=== PATIENT | female | born 1950 | race Caucasian/White ===

== ENCOUNTER 2017-12-15 08:24 | Day surgery (SDC) | payer MEDICARE, BC ==
[~2017-12-15 08:24] MED LIST: MIDAZOLAM 2 MG/2 ML SOL ONE
[2017-12-15] MEDS ORDERED: ACETAZOLAMIDE 250 MG PO ONE (08:29)
[2017-12-15] MEDS: PHENYLEPHRINE HCL 10% OPHTHAL SOL ONE ×2 (08:51→09:05)
[2017-12-15] MEDS: PROPARACAINE HCL 0.5% OPHTHALMIC SOL ONE ×3 (08:51→10:19)
[2017-12-15] MEDS: KETOROLAC 0.5% OPTH 60 DROP SOL ONE ×2 (08:52→09:06)
[2017-12-15] MEDS: CYCLOPENTOLATE 1% SOL ONE ×2 (08:52→09:06)
[2017-12-15 09:00] VITALS: TEMP 98.5
[2017-12-15] MEDS ORDERED: POVIDONE IODINE 5% SOL ONE (10:14)
[2017-12-15] MEDS ORDERED: BSS 500 ML 500 ML IR ONE (10:15)
[2017-12-15] MEDS ORDERED: LIDOCAINE HCL 1% MPF 30 SOL ONE (10:15)
[2017-12-15 10:53] VITALS: BP 134/69; PULSE 59; RESP 20; O2SAT 98
== END 2017-12-15 11:10 | disposition home or self-care (01) | DRG 125 ==
LOC: SURG 08:24
PROVIDERS: ATTEND Ophthalmology
DX: H25.9 Unspecified age-related cataract (principal)
CPT/HCPCS: J2250; A9270-GY; J2001

== ENCOUNTER → 2018-01-09 | Day surgery (SDC) | payer MEDICARE, BC ==
[~2018-01-09] MED LIST changes: +ACETAZOLAMIDE 250 MG PO ONE; +BSS 500 ML 500 ML IR ONE; +FENTANYL 100MCG/2ML SOL ONE; +LIDOCAINE HCL 1% MPF 30 SOL ONE; +POVIDONE IODINE 5% SOL ONE
[2018-01-09] MEDS: PHENYLEPHRINE HCL 10% OPHTHAL SOL ONE ×2 (08:35→08:50)
[2018-01-09] MEDS: PROPARACAINE HCL 0.5% OPHTHALMIC SOL ONE ×3 (08:35→09:57)
[2018-01-09] MEDS: CYCLOPENTOLATE 1% SOL ONE ×2 (08:36→08:50)
[2018-01-09] MEDS: KETOROLAC 0.5% OPTH 60 DROP SOL ONE ×2 (08:36→08:51)
[2018-01-09 10:29] VITALS: BP 130/77; PULSE 73; RESP 18; TEMP 97.8; O2SAT 95
== END | disposition home or self-care (01) | DRG 125 ==
LOC: SURG 08:16
PROVIDERS: ATTEND Ophthalmology
DX: H25.9 Unspecified age-related cataract (principal)
CPT/HCPCS: J2250; J3010; A9270-GY; J2001